=== PATIENT | female | born 1965 | race Caucasian/White ===

== ENCOUNTER 2016-11-12 16:41 | Emergency (ER) | payer BC ==
[2016-11-12 19:46] VITALS: BP 155/85
--- NOTE | 2016-11-12 20:51 | UC ---
Ear Complaint HPI - HPI Summary HPI Summary: OVER THE LAST WEEK RIGHT EAR FEELING PLUGGED AND SOUNDS BECOMING MORE MUFFLED. NO PAIN. NO COLD SYMPTOMS. LEFT EAR STARTING TO FEEL A LITTLE MUFFLED TOO. - History of Current Complaint Chief Complaint: UC Stated Complaint: EAR COMPLAINT Time Seen by Provider: 11/12/16 19:34 Hx Obtained From: Patient Hx Last Menstrual Period: irregular Onset/Duration: Gradual Onset, Lasting Weeks, Worse Since - DAILY Alleviating Factors: Nothing Associated Signs/Symptoms: Positive: Hearing Loss - Allergies/Home Medications Allergies/Adverse Reactions: Allergies Allergy/AdvReac Type Severity Reaction Status Date / Time Sulfa Antibiotics Allergy Intermediate Hives Verified 11/12/16 19:39 PMH/Surg Hx/FS Hx/Imm Hx Previously Healthy: Yes Respiratory History Of: Reports: Asthma - induced by illness Cancer History Of: Denies: Breast Cancer - Surgical History Surgical History: Yes Surgery Procedure, Year, and Place: Meme - Family History Known Family History: Negative: Respiratory Disease - Social History Occupation: Employed Full-time Lives: With Family Alcohol Use: Rare Substance Use Type: None Smoking Status (MU): Never Smoked Tobacco Have You Smoked in the Last Year: No Review of Systems Constitutional: Negative Skin: Negative Eyes: Negative ENT: Ear Ache - R>L; FULLNESS AND MUFFLED HEARING WITHOUT ACHE Respiratory: Negative Cardiovascular: Negative Gastrointestinal: Negative Genitourinary: Negative Motor: Negative Neurovascular: Negative Musculoskeletal: Negative Neurological: Negative Psychological: Negative All Other Systems Reviewed And Are Negative: Yes Physical Exam Triage Information Reviewed: Yes Appearance: Well-Appearing, No Pain Distress, Well-Nourished Vital Signs: Initial Vital Signs Temp 98.4 F 11/12/16 19:40 Pulse 80 11/12/16 19:40 Resp 16 11/12/16 19:40 BP 155/85 11/12/16 19:40 Pulse Ox 98 11/12/16 19:40 Eye Exam: Normal ENT: Positive: Hearing grossly normal, Pharynx normal, TMs normal - AFTER IRRIGATION AND CERUMEN REMOVAL, Other: - CERUMEN IMPACTION R>L Dental Exam: Normal Neck exam: Normal Neck: Positive: Supple, Nontender, No Lymphadenopathy Respiratory Exam: Normal Respiratory: Positive: Chest non-tender, Lungs clear, Normal breath sounds, No respiratory distress, No accessory muscle use Cardiovascular Exam: Normal Cardiovascular: Positive: RRR, No Murmur, Pulses Normal Abdominal Exam: Normal Musculoskeletal Exam: Normal Musculoskeletal: Positive: Strength Intact, ROM Intact Neurological Exam: Normal Psychological Exam: Normal Skin Exam: Normal Ear Complaint Course/Dx - Differential Dx/Diagnosis Differential Diagnosis/HQI/PQRI: Cerumen Impaction, Otitis Externa, Otitis Media , URI Provider Diagnoses: BILATERAL CERUMEN IMPACTION Discharge - Discharge Plan Condition: Stable Disposition: HOME Patient Education Materials: Cerumen Impaction (ED) Referrals: Bibiana Fernandez MD [Primary Care Provider] -
== END 2016-11-12 20:48 | disposition home or self-care (01) ==
LOC: UCEAST 16:41
DX: H61.23 Impacted cerumen, bilateral (principal); Z88.2 Allergy status to sulfonamides
CPT/HCPCS: 99213; G0463

== ENCOUNTER 2017-01-02 08:58 | Emergency (ER) | payer BC ==
[2017-01-02 09:13] VITALS: BP 138/72
--- NOTE | 2017-01-02 09:42 | UC ---
Skin Complaint HPI - HPI Summary HPI Summary: 51 YO FEMALE WITH A 3 WEEK HX OF SCALP AND NECK/FOREHEAD "SORES" STATES HER HAIR HAS BEEN FALLING OUT IN LARGE AMTS AND CLOGGING DRAIN NO F/C NO WT CHANGE THE PAST FEW DAYS HAS NOTED INCREASED THIRST AND URINATION - History of Current Complaint Chief Complaint: UCSkin Time Seen by Provider: 01/02/17 09:25 Stated Complaint: RASH Hx Obtained From: Patient Hx Last Menstrual Period: AUGUST - PERIMENOPAUSAL Onset/Duration: Gradual Onset, Lasting Weeks Onset Severity: Mild Current Severity: Mild Pain Intensity: 3 Pain Scale Used: 0-10 Numeric Location: Other - SCALP/NECK/FOREHEAD Aggravating: Nothing Alleviating: Nothing Associated Signs & Symptoms: Positive: Negative - EXPECT NOTED, Thirst, Rash - Allergy/Home Medications Allergies/Adverse Reactions: Allergies Allergy/AdvReac Type Severity Reaction Status Date / Time Sulfa Antibiotics Allergy Intermediate Hives Verified 01/02/17 09:06 Review of Systems Constitutional: Negative Skin: Rash Eyes: Negative ENT: Negative Respiratory: Negative Cardiovascular: Negative Gastrointestinal: Negative Genitourinary: Negative Motor: Negative Neurovascular: Negative Musculoskeletal: Negative Neurological: Negative Psychological: Negative All Other Systems Reviewed And Are Negative: Yes PMH/Surg Hx/FS Hx/Imm Hx Previously Healthy: Yes Endocrine History Of: Denies: Diabetes, Thyroid Disease Cardiovascular History Of: Denies: Cardiac Disorders, Hypertension Respiratory History Of: Reports: Asthma - induced by illness Denies: COPD GI/ History Of: Denies: Ulcer Cancer History Of: Denies: Breast Cancer - Surgical History Surgical History: Yes Surgery Procedure, Year, and Place: [id number] - Family History Known Family History: Positive: Cardiac Disease, Hypertension, Diabetes, Other - HYPOTHROIDISM Negative: Respiratory Disease - Social History Alcohol Use: Rare Substance Use Type: None Smoking Status (MU): Never Smoked Tobacco Have You Smoked in the Last Year: No Physical Exam Triage Information Reviewed: Yes Appearance: Well-Appearing, No Pain Distress, Well-Nourished Vital Signs: Initial Vital Signs Temp 98.0 F 01/02/17 09:07 Pulse 74 01/02/17 09:07 Resp 16 01/02/17 09:07 BP 138/72 01/02/17 09:07 Pulse Ox 100 01/02/17 09:07 Vital Signs Reviewed: Yes Eyes: Positive: Conjunctiva Clear ENT: Positive: Hearing grossly normal, Pharynx normal. Negative: Nasal congestion, Nasal drainage, Trismus, Muffled/hoarse voice Neck: Positive: Supple, Nontender, No Lymphadenopathy Respiratory: Positive: Lungs clear, Normal breath sounds, No respiratory distress, No accessory muscle use Cardiovascular: Positive: RRR, No Murmur Musculoskeletal: Positive: ROM Intact, No Edema Neurological: Positive: Alert Skin: Positive: rashes - PAPULES ESPECIALLY AROUND SCALP LINE SOME CRUSTED IMPETIGIONOUS LESIONS Course/Dx - Diagnoses Provider Diagnoses: PROBABLE STAPH INFECTION. HAIR LOSS (?TELOGENIC AFFLUVIUM) Discharge - Discharge Plan Condition: Stable Disposition: HOME Prescriptions: DOXYcycline CAP(*) [DOXYcycline 100MG CAP(*)] 100 mg PO BID #20 cap Referrals: Bibiana Fernandez MD [Primary Care Provider] -
[2017-01-02 12:20] LABS: Hematocrit 44 % (35-47); Mean Corpuscular HGB Conc 34 g/dl (31-36); Mean Corpuscular Hemoglobin 31 pg (27-31); Mean Corpuscular Volume 90 fL (80-97); Mean Platelet Volume 7 um3 (7.4-10.4); Red Blood Count 4.89 10^6/ul (4.0-5.4); Red Cell Distribution Width 13 % (10.5-15); White Blood Count 8.2 10^3/ul (3.5-10.8)
[2017-01-02 12:30] LABS: BUN/Creatinine Ratio 24.7 (8-20); EGFR Non-African American 84.7 (>60); Globulin 3.3 g/dL (2-4); Potassium 3.9 mmol/L (3.5-5.0); Total Bilirubin 0.7 mg/dL (0.2-1.0); Total Protein 7.3 g/dL (6.4-8.9)
[2017-01-02 12:41] LABS: TSH (Thyroid Stimulating Horm) 1.37 mcIU/mL (0.34-5.60)
[2017-01-02 14:08] LABS: Erythrocyte Sed Rate 22 mm/Hr (0-14)
== END 2017-01-02 10:45 | disposition home or self-care (01) ==
LOC: UCEAST 08:58
DX: L65.9 Nonscarring hair loss, unspecified (principal); Z88.2 Allergy status to sulfonamides; R21 Rash and other nonspecific skin eruption
CPT/HCPCS: 36415; 80053; 81003; 84443; 85025; 85652; 86038; 87086; 99212; G0463